=== PATIENT | male | born 1990 | race Caucasian/White ===

== ENCOUNTER 2017-04-16 05:27 | Day surgery (SDC) | payer BC, OTHER ==
[2017-04-15 13:02] LABS: BASOPHILS % (AUTO) 0.2 % (0-1); EOSINOPHILS % (AUTO) 0 % (0-6); LYMPHOCYTES # (AUTO) 1.3 X10'3 (1.1-4.8); MEAN CORPUSCULAR HEMOGLOBIN 29.6 PG (27.0-31.0); MEAN CORPUSCULAR HGB CONC 33.3 % (33.0-36.5); MEAN CORPUSCULAR VOLUME 88.9 FL (78-98); MEAN PLATELET VOLUME 8.3 FL (7.4-10.4); MONOCYTES # (AUTO) 1.1 X10'3 (0-0.9); MONOCYTES % (AUTO) 13.1 % (2-12); NEUTROPHILS % (AUTO) 71.7 % (42-75); PRE OP HEMATOCRIT 49.6 % (42.0-52.0); PRE OP HEMOGLOBIN 16.5 g/dL (14.0-17.9); PRE OP PLATELET COUNT 156 X10'3 (140-440); RED BLOOD COUNT 5.58 X10'6 (4.70-6.10); RED CELL DISTRIBUTION WIDTH 13.8 % (11.5-14.5)
[2017-04-15 13:17] LABS: ALBUMIN 4.1 G/DL (3.4-5.0); ANION GAP 6 (8-16); BLOOD UREA NITROGEN 10 MG/DL (7-18); BUN/CREATININE RATIO 7.9 (5.4-32.0); CHLORIDE 99 MMOL/L (99-107); CREATININE 1.27 MG/DL (0.60-1.10); GLUCOSE 92 MG/DL (70-104); POTASSIUM 4.3 MMOL/L (3.5-5.1); SODIUM 137 MMOL/L (135-145); TOTAL CARBON DIOXIDE 32.1 MMOL/L (24-32); eGFR 68 ML/MIN
[2017-04-16] VITALS (16 sets, daily range): BP systolic 108–132; BP diastolic 57–80
[~2017-04-16] VITALS: Ht 188 cm; Wt 83.9 kg
[~2017-04-16 05:27] MED LIST: NO HOME MEDS; ringers solution, lacted 1,000 ML IV SCH
[2017-04-16] MEDS ORDERED: tranexamic acid inj. 800 MG in normal saline 100ml IV soln 92 ML IV ONE ×3 (05:30→11:00)
[2017-04-16] MEDS ORDERED: ceFAZolin 2gm in dextrose, iso 50 ML IV ONE (05:30)
[2017-04-16] MEDS ORDERED: famotidine 20mg tablet PO ONE (05:30)
[2017-04-16] MEDS ORDERED: LIDOcaine 1% (10mg/ml) 2ml vial ONE (05:43)
[2017-04-16] MEDS ORDERED: ceFAZolin 2gm in dextrose, iso 100 ML IV ONE (06:22)
[2017-04-16] MEDS ORDERED: cloNIDine hcl/PF 100mcg/ml inj ONE (07:06)
[2017-04-16] MEDS ORDERED: ROPIVAcaine 0.5% (5mg/ml) 30ml vial ONE (07:06)
[2017-04-16] MEDS ORDERED: fentaNYL/PF 50MCG/1 ML 2ML syringe ONE (07:09)
[2017-04-16] MEDS ORDERED: propofol inj 20 ML IV ONE (07:09)
[2017-04-16] MEDS ORDERED: dexamethasone sod phosphate 4mg/ml inj. ONE (07:09)
[2017-04-16] MEDS ORDERED: LIDOcaine 2% (20mg/ml) 5ml vial ONE (07:09)
[2017-04-16] MEDS ORDERED: midazolam 2 mg/2 ml injection ONE (07:09)
[2017-04-16] MEDS ORDERED: ondansetron/PF 4mg/2ml inj ONE (07:10)
[2017-04-16] MEDS ORDERED: ketorolac trometh. 30mg/ml inj. ONE (07:10)
[2017-04-16] MEDS ORDERED: ringers solution, lacted 1,000 ML IV SCH (07:17)
[2017-04-16] MEDS ORDERED: labetalol 5mg/ml 20ml inj. IV PRN (07:20)
[2017-04-16] MEDS ORDERED: meperidine/PF 25mg/ml syringe IV PRN ×2 (07:20)
[2017-04-16] MEDS ORDERED: ondansetron/PF 4mg/2ml inj IV PRN (07:20)
[2017-04-16] MEDS ORDERED: hydrALAZINE 20mg/ml inj. IV PRN (07:20)
[2017-04-16] MEDS ORDERED: sevoflurane 250ml liquid IH ONE (07:23)
[2017-04-16] MEDS ORDERED: meperidine/PF 50mg/ml syringe ONE (09:46)
[2017-04-16] MEDS ORDERED: HYDROcodone/acetaminophen 10/325mg tab PO PRN (10:30)
== END 2017-04-16 12:44 | disposition home or self-care (01) ==
LOC: PAS 05:27
PROVIDERS: ATTEND Orthopaedic Surgery
DX: S43.432A Superior glenoid labrum lesion of left shoulder, initial encounter (principal); S43.012A Anterior subluxation of left humerus, initial encounter; Z72.89 Other problems related to lifestyle; Z98.890 Other specified postprocedural states; X58.XXXA Exposure to other specified factors, initial encounter; Y93.9 Activity, unspecified; Y92.9 Unspecified place or not applicable; Y99.9 Unspecified external cause status
CPT/HCPCS: 29806; 29828; 36415; 80048; 85025; A4565; C1713; C1776; J0690; J0735; J1100; J1885; J2001; J2175; J2250; J2405; J2704; J2795; J3010; J3490; J7120; A7000; J7030

== ENCOUNTER 2017-06-11 08:16 | Day surgery (SDC) | payer BC, OTHER ==
[2017-06-11] VITALS (7 sets, daily range): BP systolic 108–120; BP diastolic 61–83
[~2017-06-11] VITALS: Ht 188 cm; Wt 85.6 kg
[~2017-06-11 08:16] MED LIST changes: +BUPIVAcaine/PF 2.5 mg/ml (0.25%) 30ml vial ONE; +cefazolin/dext.iso 2gm/50ml 50 ML IV ONE; +famotidine 20mg tablet PO ONE
[2017-06-11] MEDS ORDERED: BUPIVAcaine/PF 2.5 mg/ml (0.25%) 30ml vial ONE (09:30)
[2017-06-11] MEDS ORDERED: LIDOcaine 2% (20mg/ml) 5ml vial ONE (09:45)
[2017-06-11] MEDS ORDERED: meperidine/PF 50mg/ml syringe IV PRN ×3 (10:20)
[2017-06-11] MEDS ORDERED: ondansetron/PF 4mg/2ml inj IV PRN (10:20)
[2017-06-11] MEDS ORDERED: ringers solution, lacted 1,000 ML IV SCH (10:20)
[2017-06-11] MEDS ORDERED: morphine 2 MG/ML inj. syringe IV PRN ×2 (10:20)
[2017-06-11] MEDS ORDERED: proCHLORperazine 10 MG/2 ml inj IV PRN (10:20)
[2017-06-11] MEDS ORDERED: midazolam 2 mg/2 ml injection ONE (10:28)
[2017-06-11] MEDS ORDERED: fentaNYL/PF 50MCG/1 ML 2ML syringe ONE (10:28)
[2017-06-11] MEDS ORDERED: propofol inj 20 ML IV ONE ×3 (10:55)
== END 2017-06-11 12:25 | disposition home or self-care (01) ==
LOC: PAS 08:16
PROVIDERS: ATTEND Orthopaedic Surgery Hand Surgery
DX: S63.591A Other specified sprain of right wrist, initial encounter (principal); M65.88 Other synovitis and tenosynovitis, other site; Z98.890 Other specified postprocedural states; Z72.89 Other problems related to lifestyle; X58.XXXA Exposure to other specified factors, initial encounter; Y93.89 Activity, other specified; Y92.89 Other specified places as the place of occurrence of the external cause; Y99.8 Other external cause status
CPT/HCPCS: 29846; A6449; J0690; J2001; J2250; J2704; J3010; J3490; J7120; A7000